=== PATIENT | male | born 1995 | race Caucasian/White ===

== ENCOUNTER 2022-05-15 22:29 | Emergency (ER) | payer OTHER ==
[~2022-05-15] VITALS: Ht 177.8 cm; Wt 79.4 kg
[2022-05-16] MEDS ORDERED: AMOX TR-K CLV1 EAC1 PO (00:25)
== END 2022-05-16 00:48 | disposition home or self-care (01) ==
LOC: ED 22:29
DX: S01.511A Laceration without foreign body of lip, initial encounter (principal); W50.0XXA Accidental hit or strike by another person, initial encounter
CPT/HCPCS: 12051; 99283-25; A9270